=== PATIENT | female | born 1970 | race Caucasian/White ===

== ENCOUNTER 2016-10-06 09:46 | Day surgery (SDC) | payer OTHER ==
[2016-10-06 11:10] VITALS: RESP 16; TEMP 98.1
[2016-10-06] MEDS ORDERED: LIDOCAINE 1% 20 ML VIAL (10MG/ML) FOR IV START INTRADERMA PRN (11:18)
[2016-10-06] MEDS ORDERED: LACTATED RINGERS 1,000 ML IV SCH (11:18)
[2016-10-06] MEDS ORDERED: LIDOCAINE 1% 20 ML VIAL (10MG/ML) FOR IV START INTRADERMA ONE (11:31)
[2016-10-06] MEDS ORDERED: PROPOFOL 10 MG/ML 20 ML VIAL IV ONE (11:32)
--- NOTE | 2016-10-06 11:52 | P.PCN ---
Date of Procedure: 10/06/16 Preoperative Diagnosis: Postoperative Diagnosis: Procedure(s) Performed: BRIEF HISTORY: Patient is a 46-year-old pleasant white female, scheduled for an elective colonoscopy as a part of evaluation of change in bowel habits and elevated CEA level. 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 On a routine labs she was noted have elevated CEA level and hence scheduled for a colonoscopy today. PROCEDURE PERFORMED: Colonoscopy with biopsy PREOPERATIVE DIAGNOSIS: Change in bowel habits and elevated CEA level. IV sedation per Anesthesia. PROCEDURE: After informed consent was obtained, the patient, was brought into the endoscopy unit. IV sedation was administered by Anesthesia under continuous monitoring. Digital rectal examination was normal. Initially the Olympus CF- 160 flexible video colonoscope was then inserted in the rectum, gradually advanced into the cecum without any difficulty. Careful examination was performed as the scope was gradually being withdrawn. Ileocecal valve and the appendiceal orifice were visualized and appeared normal. Prep was excellent. Mucosa of the cecum appeared normal. In the ascending colon there was a 5 mm polyp that was removed by cold biopsy. The rest of the, ascending colon, transverse colon, descending colon, sigmoid colon, and rectum appeared normal. Retroflexion was performed in the rectum and no lesions were seen. The patient tolerated the procedure well. IMPRESSION: 5 mm ascending colon polyp status post removal by biopsy. Rest of the colon appeared normal RECOMMENDATIONS: Findings of this examination were discussed with the patient as well as a family. She was advised to follow with the biopsy results. If the biopsy shows a tubal adenoma she can have a repeat colonoscopy in 5 years. Implants: Indications for Procedure: Operative Findings: Description of Procedure:
[2016-10-06 12:13] VITALS: BP 103/57; PULSE 60
== END 2016-10-06 12:44 | disposition home or self-care (01) ==
LOC: ORWHC2ENDO 09:46
PROVIDERS: ATTEND Internal Medicine Gastroenterology
DX: K63.5 Polyp of colon (principal); K21.9 Gastro-esophageal reflux disease without esophagitis; G43.909 Migraine, unspecified, not intractable, without status migrainosus; Z79.891 Long term (current) use of opiate analgesic; Z79.899 Other long term (current) drug therapy
CPT/HCPCS: 81025; 88305; 45380; J2704

== ENCOUNTER 2016-11-11 18:37 | Emergency (ER) | payer OTHER ==
[2016-11-11] MEDS ORDERED: MORPHINE SULFATE 4 MG/ML SYRINGE IV STA (19:20)
[2016-11-11] MEDS ORDERED: SODIUM CHLORIDE 0.9% 1,000 ML IV STA ×2 (19:20)
[2016-11-11] MEDS ORDERED: ONDANSETRON 4 MG/2 ML VIAL IVP STA ×2 (19:20→20:42)
[2016-11-11 20:20] LABS: Basophils % (A) 0 %; CHCM 33.3; Eosinophils # (A) 0.1 k/uL (0-0.7); Eosinophils % (A) 1 %; HCT 33.1 % (34.0-46.0); HDW 2.92; Hypochromasia Slight; Luc # (Auto) 0.13; Luc % (Auto) 1; Lymphocytes # (A) 1.4 k/uL (1.0-4.8); Lymphocytes % (A) 15 %; MCH 31.1 pg (25.0-35.0); MCHC 33.2 g/dL (31.0-37.0); MCV 93.7 fL (80.0-100.0); Mean Platelet Volume 7.1; Monocytes # (A) 0.5 k/uL (0-1.0); Monocytes % (A) 5 %; Neutrophils # (A) 7.1 k/uL (1.3-7.7); Neutrophils % (A) 77 %; RBC 3.53 m/uL (3.80-5.40); RDW 13.9 % (11.5-15.5); WBC 9.3 k/uL (3.8-10.6); WBC (Perox) 9.21
[2016-11-11 20:30] LABS: ALT 33 U/L (9-52); AST 28 U/L (14-36); Alkaline Phosphatase 122 U/L (38-126); Amylase 40 U/L (30-110); Anion Gap 11 mmol/L; Blood Urea Nitrogen 14 mg/dL (7-17); Calcium 9.4 mg/dL (8.4-10.2); Carbon Dioxide 24 mmol/L (22-30); Chloride 108 mmol/L (98-107); Glucose 143 mg/dL (74-99); Non-African American GFR(MDRD) >60 (>60 ml/min/1.73 sqM); Potassium 4.5 mmol/L (3.5-5.1); Sodium 143 mmol/L (137-145); Total Bilirubin 0.5 mg/dL (0.2-1.3); Total Protein 6.9 g/dL (6.3-8.2)
--- NOTE | 2016-11-11 20:36 | XR ---
EXAMINATION TYPE: XR abdomen complete w decub DATE OF EXAM: 11/11/2016 COMPARISON: NONE HISTORY: Nausea vomiting TECHNIQUE: Upright and supine views abdomen FINDINGS: Normal colonic bowel gas is present. Psoas margins are normal. Cholecystectomy clips are pr esent. No organomegaly is evident. Phlebolith is within the pelvis. No free air is evident. No differential air-fluid levels are present. No mass effect is evident. There is partial sacralization of L5. IMPRESSION: 1. Normal acute abdomen series
[2016-11-11] MEDS ORDERED: MORPHINE SULFATE 4 MG/ML SYRINGE IVP STA (20:42)
[2016-11-11 21:23] LABS: Amorphous Sediment,Urine Occasional /hpf; Appearance,Urine Turbid (Clear); Bilirubin,Urine Negative (Negative); Glucose,Urine (UA) Negative (Negative); Ketones,Urine 3+ (Negative); Leukocyte Esterase,Urine Small (Negative); Mucus,Urine Occasional /hpf; Nitrite,Urine Negative (Negative); PH, Urine 8.5 (5.0-8.0); Particle Count 24092; Protein,Urine Trace (Negative); Specific Gravity,Urine 1.014 (1.001-1.035); Squamous Epithelial Cell,Urine 14 /hpf (0-4); UA Billing (MACRO vs. MICRO) MICRO; Urobilinogen,Urine <2.0 mg/dL (<2.0)
[2016-11-11] MEDS ORDERED: METOCLOPRAMIDE 5 MG/ML 2 ML VIAL IVP STA (21:29)
[2016-11-11] MEDS ORDERED: diphenhydrAMINE 50 MG/ML 1 ML VIAL IVP STA (21:29)
--- NOTE | 2016-11-11 21:40 | ED ---
General Adult HPI - General Chief complaint: Nausea/Vomiting/Diarrhea Stated complaint: nausea/vomiting Time Seen by Provider: 11/11/16 19:14 Source: patient, RN notes reviewed, old records reviewed Mode of arrival: wheelchair Limitations: no limitations - History of Present Illness Initial comments: 46-year-old female presents with a 6 hour history of acute onset vomiting and profound nausea. Patient states she had approximately 3 episodes of vomiting which was nonbloody. She does report a small amount of diarrhea or loose stool. She has abdominal pain which is unchanged over the past week. Patient did have abdominal surgery on November 02 at [facility]. Patient states she had a cyst on her pancreas which was removed as well as her spleen. Patient is a history of chronic pancreatitis and alcohol abuse. She denies fever but states she has been hot and cold. Denies erythema or drainage from her surgical incision. - Related Data Home Medications Medication Instructions Recorded Confirmed Omeprazole [PriLOSEC] 20 mg PO DAILY PRN 10/04/16 11/11/16 SUMAtriptan SUCCINATE [Imitrex] 50 mg PO DAILY PRN 10/04/16 11/11/16 Methocarbamol [Robaxin] 750 mg PO TID 11/11/16 11/11/16 Sennosides [Senna] 8.6 mg PO DAILY PRN 11/11/16 11/11/16 oxyCODONE HCL [Roxicodone] 5 - 10 mg PO Q4HR 11/11/16 11/11/16 Allergies Allergy/AdvReac Type Severity Reaction Status Date / Time No Known Allergies Allergy Verified 11/11/16 19:09 Review of Systems ROS Statement: Those systems with pertinent positive or pertinent negative responses have been documented in the HPI. ROS Other: All systems not noted in ROS Statement are negative. Constitutional: Reports: fever, chills Gastrointestinal: Reports: abdominal pain, nausea, vomiting, diarrhea Past Medical History Past Medical History: GERD/Reflux Additional Past Medical History / Comment(s): HX OF PANCREATITIS R/T gallstone, loose stools, herniated disc, hx. ulcer, scheduled for surgery soon @[facility] related to cyst on pancreas & elevated CEA level History of Any Multi-Drug Resistant Organisms: None Reported Past Surgical History: Cholecystectomy Additional Past Surgical History / Comment(s): PANCREATIC DEBRIDEMENT Past Anesthesia/Blood Transfusion Reactions: No Reported Reaction Past Psychological History: No Psychological Hx Reported Smoking Status: Current every day smoker - Past Family History Mother Family Medical History: Cancer Additional Family Medical History / Comment(s): ovarian Father Family Medical History: Cancer Additional Family Medical History / Comment(s): pancreatic Brother(s) Family Medical History: Deep Vein Thrombosis (DVT) General Exam Limitations: no limitations General appearance: alert, in distress Head exam: Present: atraumatic Eye exam: Present: normal appearance, PERRL. Absent: scleral icterus ENT exam: Present: normal exam, mucous membranes dry Respiratory exam: Present: normal lung sounds bilaterally. Absent: respiratory distress, wheezes Cardiovascular Exam: Present: regular rate, normal rhythm GI/Abdominal exam: Present: soft, tenderness (There is epigastric and left upper quadrant), other (Incision is clean dry and intact). Absent: guarding, rebound Extremities exam: Present: normal inspection. Absent: pedal edema Neurological exam: Present: alert, oriented X3 Psychiatric exam: Present: normal affect, normal mood Skin exam: Present: warm, diaphoretic Course Vital Signs 11/11/16 11/11/16 11/11/16 18:47 20:01 20:59 Temperature 97.1 F L 97.6 F 97.9 F Pulse Rate 69 61 63 Respiratory 16 20 24 Rate Blood Pressure 117/61 102/59 126/66 O2 Sat by Pulse 100 100 100 Oximetry - Reevaluation(s) Reevaluation #1: 11/11/16 21:36 Patient is reevaluated multiple times. She has persistent nausea. Patient remains diaphoretic. Vital signs are stable. Abdominal pain is unchanged. Patient is given Zofran, Reglan, Benadryl for nausea. Patient will be transferred to him her surgeon practices, patient is agreeable with this plan. Medical Decision Making - Medical Decision Making 6-year-old female presenting with acute nausea and vomiting. Patient receives multiple doses of antiemetics in the emergency department. She still is very uncomfortable with persistent nausea and vomiting. Patient is postop pancreatic and splenic surgery at [facility]. Laboratory studies reviewed and is grossly unremarkable. X-ray of the abdomen does not show any acute process, no obstruction, no free air. As discussed with the patient she was agreeable. Diagnosis: Intractable nausea and vomiting postoperative abdominal surgery. Disposition: Transfer to [facility] for further evaluation and treatment. accepting doctor: - Lab Data Result diagrams: 11/11/16 19:50 11/11/16 19:50 Lab Results 11/11/16 11/11/16 11/11/16 Range/Units 19:50 19:50 19:50 WBC 9.3 (3.8-10.6) k/uL RBC 3.53 L (3.80-5.40) m/uL Hgb 11.0 L (11.4-16.0) gm/dL Hct 33.1 L (34.0-46.0) % MCV 93.7 (80.0-100.0) fL MCH 31.1 (25.0-35.0) pg MCHC 33.2 (31.0-37.0) g/dL RDW 13.9 (11.5-15.5) % Plt Count 728 H (150-450) k/uL Neutrophils % 77 % Lymphocytes % 15 % Monocytes % 5 % Eosinophils % 1 % Basophils % 0 % Neutrophils # 7.1 (1.3-7.7) k/uL Lymphocytes # 1.4 (1.0-4.8) k/uL Monocytes # 0.5 (0-1.0) k/uL Eosinophils # 0.1 (0-0.7) k/uL Basophils # 0.0 (0-0.2) k/uL Hypochromasia Slight Sodium 143 (137-145) mmol/L Potassium 4.5 (3.5-5.1) mmol/L Chloride 108 H (98-107) mmol/L Carbon Dioxide 24 (22-30) mmol/L Anion Gap 11 mmol/L BUN 14 (7-17) mg/dL Creatinine 0.63 (0.52-1.04) mg/dL Est GFR (MDRD) Af Amer >60 (>60 ml/min/1.73 sqM) Est GFR (MDRD) Non-Af >60 (>60 ml/min/1.73 sqM) Glucose 143 H (74-99) mg/dL Plasma Lactic Acid Collin 1.1 (0.7-2.0) mmol/L Calcium 9.4 (8.4-10.2) mg/dL Total Bilirubin 0.5 (0.2-1.3) mg/dL AST 28 (14-36) U/L ALT 33 (9-52) U/L Alkaline Phosphatase 122 (38-126) U/L Total Protein 6.9 (6.3-8.2) g/dL Albumin 3.6 (3.5-5.0) g/dL Amylase 40 (30-110) U/L Lipase 77 (23-300) U/L Urine Color Urine Appearance (Clear) Urine pH (5.0-8.0) Ur Specific [place] (1.001-1.035) Urine Protein (Negative) Urine Glucose (UA) (Negative) Urine Blood (Negative) Urine Nitrite (Negative) Urine Bilirubin (Negative) Urine Urobilinogen (<2.0) mg/dL Ur Leukocyte Esterase (Negative) Ur Squamous Epith Cells (0-4) /hpf Amorphous Sediment (None) /hpf Urine Mucus (None) /hpf 11/11/16 Range/Units 21:10 WBC (3.8-10.6) k/uL RBC (3.80-5.40) m/uL Hgb (11.4-16.0) gm/dL Hct (34.0-46.0) % MCV (80.0-100.0) fL MCH (25.0-35.0) pg MCHC (31.0-37.0) g/dL RDW (11.5-15.5) % Plt Count (150-450) k/uL Neutrophils % % Lymphocytes % % Monocytes % % Eosinophils % % Basophils % % Neutrophils # (1.3-7.7) k/uL Lymphocytes # (1.0-4.8) k/uL Monocytes # (0-1.0) k/uL Eosinophils # (0-0.7) k/uL Basophils # (0-0.2) k/uL Hypochromasia Sodium (137-145) mmol/L Potassium (3.5-5.1) mmol/L Chloride (98-107) mmol/L Carbon Dioxide (22-30) mmol/L Anion Gap mmol/L BUN (7-17) mg/dL Creatinine (0.52-1.04) mg/dL Est GFR (MDRD) Af Amer (>60 ml/min/1.73 sqM) Est GFR (MDRD) Non-Af (>60 ml/min/1.73 sqM) Glucose (74-99) mg/dL Plasma Lactic Acid [place] (0.7-2.0) mmol/L Calcium (8.4-10.2) mg/dL Total Bilirubin (0.2-1.3) mg/dL AST (14-36) U/L ALT (9-52) U/L Alkaline Phosphatase (38-126) U/L Total Protein (6.3-8.2) g/dL Albumin (3.5-5.0) g/dL Amylase (30-110) U/L Lipase (23-300) U/L Urine Color Yellow Urine Appearance Turbid H (Clear) Urine pH 8.5 H (5.0-8.0) Ur Specific [place] 1.014 (1.001-1.035) Urine Protein Trace H (Negative) Urine Glucose (UA) Negative (Negative) Urine Blood Negative (Negative) Urine Nitrite Negative (Negative) Urine Bilirubin Negative (Negative) Urine Urobilinogen <2.0 (<2.0) mg/dL Ur Leukocyte Esterase Small H (Negative) Ur Squamous Epith Cells 14 H (0-4) /hpf Amorphous Sediment Occasional H (None) /hpf Urine Mucus Occasional H (None) /hpf Disposition Clinical Impression: Nausea & vomiting Disposition: OTHER INSTITUTION NOT DEFINED Instructions: Acute Nausea and Vomiting (ED) Referrals: Mingo Mari DO [Primary Care Provider] - 1-2 days Time of Disposition: 21:39 - Out of Hospital Transfer - Req. Specs Out of Hospital Transfer - Requested Specifics: Other Non-Acute (Patient transferred to [facility] in [place])
[2016-11-11 22:19] VITALS: BP 127/67; PULSE 74; RESP 20; TEMP 9
== END 2016-11-12 00:22 | disposition short-term general hospital (02) ==
LOC: EC 18:37
DX: R11.2 Nausea with vomiting, unspecified (principal); R10.9 Unspecified abdominal pain; R19.7 Diarrhea, unspecified; F17.200 Nicotine dependence, unspecified, uncomplicated; Z79.899 Other long term (current) drug therapy; Z87.19 Personal history of other diseases of the digestive system; Z98.890 Other specified postprocedural states; Z90.49 Acquired absence of other specified parts of digestive tract
CPT/HCPCS: 99285; 96374; 96375 ×3; 96376 ×2; 96361 ×4; 36415; 80053; 82150; 83605; 83690; 85025; 81001; 74020; J2270; J1200; J2765; J2405

== ENCOUNTER 2017-07-03 18:34 | Emergency (ER) | payer OTHER ==
[2017-07-03] MEDS ORDERED: HYDROmorphone 0.5 MG/0.5 ML SYRINGE IVP STA ×3 (19:09→21:52)
[2017-07-03] MEDS ORDERED: SODIUM CHLORIDE 0.9% 2,000 ML IV STA (19:09)
[2017-07-03] MEDS ORDERED: ONDANSETRON 4 MG/2 ML VIAL IVP STA ×2 (19:09→21:52)
[2017-07-03] MEDS ORDERED: RX INFO: IV CONTRAST WAS GIVEN 1 EACH MISC MISCELLANE PRN (19:09)
[2017-07-03 20:06] LABS: Basophils % (A) 0 %; Eosinophils % (A) 0 %; HCT 40.3 % (34.0-46.0); HGB 13.1 gm/dL (11.4-16.0); Lymphocytes # (A) 1.5 k/uL (1.0-4.8); Lymphocytes % (A) 16 %; MCH 29.3 pg (25.0-35.0); MCHC 32.4 g/dL (31.0-37.0); MCV 90.2 fL (80.0-100.0); Mean Platelet Volume 7.1; Monocytes # (A) 0.4 k/uL (0-1.0); Monocytes % (A) 4 %; Neutrophils # (A) 7.5 k/uL (1.3-7.7); Neutrophils % (A) 79 %; Platelet Count 340 k/uL (150-450); RBC 4.46 m/uL (3.80-5.40); RDW 15.2 % (11.5-15.5); WBC 9.5 k/uL (3.8-10.6)
[2017-07-03 20:16] LABS: ALT 31 U/L (9-52); AST 21 U/L (14-36); Albumin 4.1 g/dL (3.5-5.0); Alkaline Phosphatase 84 U/L (38-126); Amylase 42 U/L (30-110); Anion Gap 13 mmol/L; Blood Urea Nitrogen 21 mg/dL (7-17); Calcium 9.6 mg/dL (8.4-10.2); Carbon Dioxide 25 mmol/L (22-30); Chloride 103 mmol/L (98-107); Glucose 133 mg/dL (74-99); Lipase 68 U/L (23-300); Potassium 4.2 mmol/L (3.5-5.1); Sodium 141 mmol/L (137-145); Total Bilirubin 0.6 mg/dL (0.2-1.3); Total Protein 7.2 g/dL (6.3-8.2)
--- NOTE | 2017-07-03 20:32 | ED ---
Abdominal Pain HPI - General Chief Complaint: Abdominal Pain Stated Complaint: Abd.pain Time Seen by Provider: 07/03/17 19:03 Source: patient, RN notes reviewed Mode of arrival: ambulatory Limitations: no limitations - History of Present Illness Initial Comments: This a 47-year-old female presents emergency Department chief complaint abdominal pain, nausea vomiting. Patient states that symptoms initially started on Sunday. She states that she had a stent removed in her pancreas on Sunday at [facility]. Patient states that she had symptoms after though she felt great yesterday but symptoms started again today. Patient said patellar pancreas removed in the past, cysts removed states that she's had pancreatic issues and gallbladder problems. Patient's is concerned that she may be having problems with her pancreas that she is having discomfort. Denies fever or chills she states she's had hot and cold issues. Patient states she did not contact her surgeon. Patient denies chest pain, shortness breath, headache or dizziness. - Related Data Home Medications Medication Instructions Recorded Confirmed SUMAtriptan SUCCINATE [Imitrex] 50 mg PO DAILY PRN 10/04/16 07/03/17 HYDROcodone/APAP 5-325MG [[place] 1 tab PO DAILY PRN 07/03/17 07/03/17 5-325] Previous Rx's Medication Instructions Recorded Ondansetron Odt [Zofran Odt] 4 mg PO Q8HR PRN #10 tab 07/03/17 Allergies Allergy/AdvReac Type Severity Reaction Status Date / Time No Known Allergies Allergy Verified 07/03/17 19:20 Review of Systems ROS Statement: Those systems with pertinent positive or pertinent negative responses have been documented in the HPI. ROS Other: All systems not noted in ROS Statement are negative. Past Medical History Past Medical History: GERD/Reflux Additional Past Medical History / Comment(s): HX OF PANCREATITIS R/T gallstone, loose stools, herniated disc, hx. ulcer, scheduled for surgery soon @[facility] related to cyst on pancreas & elevated CEA level History of Any Multi-Drug Resistant Organisms: None Reported Past Surgical History: Cholecystectomy Additional Past Surgical History / Comment(s): PANCREATIC DEBRIDEMENT Past Anesthesia/Blood Transfusion Reactions: No Reported Reaction Past Psychological History: No Psychological Hx Reported Smoking Status: Former smoker Past Alcohol Use History: None Reported Past Drug Use History: Marijuana - Past Family History Mother Family Medical History: Cancer Additional Family Medical History / Comment(s): ovarian Father Family Medical History: Cancer Additional Family Medical History / Comment(s): pancreatic Brother(s) Family Medical History: Deep Vein Thrombosis (DVT) General Exam Limitations: no limitations General appearance: alert, in no apparent distress Head exam: Present: atraumatic, normocephalic, normal inspection Neck exam: Present: normal inspection, full ROM. Absent: tenderness, meningismus, lymphadenopathy Respiratory exam: Present: normal lung sounds bilaterally. Absent: respiratory distress, wheezes, rales, rhonchi, stridor Cardiovascular Exam: Present: regular rate, normal rhythm, normal heart sounds. Absent: systolic murmur, diastolic murmur, rubs, gallop, clicks GI/Abdominal exam: Present: soft, tenderness ([id number] abdominal tenderness), normal bowel sounds. Absent: distended, guarding, rebound, rigid Course Vital Signs 07/03/17 18:40 Temperature 97.5 F L Pulse Rate 56 L Respiratory 18 Rate Blood Pressure 131/70 O2 Sat by Pulse 98 Oximetry Medical Decision Making - Medical Decision Making 47-year-old female presented emergency from for abdominal pain concerning for pancreatitis. Patient's labwork is unremarkable. CT does show patches of temporary stent as they were told it was going to. She has no signs of infection. Patient be discharged with antiemetics advised to call her surgery tender mild symptoms persist. Patient family agreed to plan. - Lab Data Result diagrams: 07/03/17 19:44 07/03/17 19:44 Lab Results 07/03/17 07/03/17 07/03/17 Range/Units 19:44 19:44 19:44 WBC 9.5 (3.8-10.6) k/uL RBC 4.46 (3.80-5.40) m/uL Hgb 13.1 (11.4-16.0) gm/dL Hct 40.3 (34.0-46.0) % MCV 90.2 (80.0-100.0) fL MCH 29.3 (25.0-35.0) pg MCHC 32.4 (31.0-37.0) g/dL RDW 15.2 (11.5-15.5) % Plt Count 340 (150-450) k/uL Neutrophils % 79 % Lymphocytes % 16 % Monocytes % 4 % Eosinophils % 0 % Basophils % 0 % Neutrophils # 7.5 (1.3-7.7) k/uL Lymphocytes # 1.5 (1.0-4.8) k/uL Monocytes # 0.4 (0-1.0) k/uL Eosinophils # 0.0 (0-0.7) k/uL Basophils # 0.0 (0-0.2) k/uL PT (9.0-12.0) sec INR (<1.2) APTT (22.0-30.0) sec Sodium 141 (137-145) mmol/L Potassium 4.2 (3.5-5.1) mmol/L Chloride 103 (98-107) mmol/L Carbon Dioxide 25 (22-30) mmol/L Anion Gap 13 mmol/L BUN 21 H (7-17) mg/dL Creatinine 0.60 (0.52-1.04) mg/dL Est GFR (MDRD) Af Amer >60 (>60 ml/min/1.73 sqM) Est GFR (MDRD) Non-Af >60 (>60 ml/min/1.73 sqM) Glucose 133 H (74-99) mg/dL Plasma Lactic Acid [place] 1.3 (0.7-2.0) mmol/L Calcium 9.6 (8.4-10.2) mg/dL Total Bilirubin 0.6 (0.2-1.3) mg/dL AST 21 (14-36) U/L ALT 31 (9-52) U/L Alkaline Phosphatase 84 (38-126) U/L Total Protein 7.2 (6.3-8.2) g/dL Albumin 4.1 (3.5-5.0) g/dL Amylase 42 (30-110) U/L Lipase 68 (23-300) U/L 07/03/17 Range/Units 19:44 WBC (3.8-10.6) k/uL RBC (3.80-5.40) m/uL Hgb (11.4-16.0) gm/dL Hct (34.0-46.0) % MCV (80.0-100.0) fL MCH (25.0-35.0) pg MCHC (31.0-37.0) g/dL RDW (11.5-15.5) % Plt Count (150-450) k/uL Neutrophils % % Lymphocytes % % Monocytes % % Eosinophils % % Basophils % % Neutrophils # (1.3-7.7) k/uL Lymphocytes # (1.0-4.8) k/uL Monocytes # (0-1.0) k/uL Eosinophils # (0-0.7) k/uL Basophils # (0-0.2) k/uL PT 10.9 (9.0-12.0) sec INR 1.1 (<1.2) APTT 23.9 (22.0-30.0) sec Sodium (137-145) mmol/L Potassium (3.5-5.1) mmol/L Chloride (98-107) mmol/L Carbon Dioxide (22-30) mmol/L Anion Gap mmol/L BUN (7-17) mg/dL Creatinine (0.52-1.04) mg/dL Est GFR (MDRD) Af Amer (>60 ml/min/1.73 sqM) Est GFR (MDRD) Non-Af (>60 ml/min/1.73 sqM) Glucose (74-99) mg/dL Plasma Lactic Acid [place] (0.7-2.0) mmol/L Calcium (8.4-10.2) mg/dL Total Bilirubin (0.2-1.3) mg/dL AST (14-36) U/L ALT (9-52) U/L Alkaline Phosphatase (38-126) U/L Total Protein (6.3-8.2) g/dL Albumin (3.5-5.0) g/dL Amylase (30-110) U/L Lipase (23-300) U/L Disposition Clinical Impression: Nausea & vomiting, Abdominal pain Disposition: HOME SELF-CARE Condition: Stable Instructions: Abdominal Pain (ED) Additional Instructions: Please return to the Emergency Department if symptoms worsen or any other concerns. Prescriptions: Ondansetron Odt [Zofran Odt] 4 mg PO Q8HR PRN #10 tab PRN Reason: Nausea Referrals: Mingo Mari DO [Primary Care Provider] - 1-2 days Time of Disposition: 21:49
[2017-07-03 20:38] LABS: INR 1.1 (<1.2); Partial Thromboplastin Time 23.9 sec (22.0-30.0); Prothrombin Time 10.9 sec (9.0-12.0)
--- NOTE | 2017-07-03 21:23 | CT ---
EXAMINATION TYPE: CT abdomen pelvis w con DATE OF EXAM: 07/03/2017 COMPARISON: Prior CT 03/30/2015 HISTORY: Abdominal pain, nausea and vomiting post pancreatic stent removal [address] DLP: 663.8 mGycm Automated exposure control for dose reduction was used. TECHNIQUE: Helical acquisition of images from the lung bases through the pelvis have been completed. CONTRAST: Performed without Oral Contrast and with IV Contrast, patient injected with 100 mL of Omnipaque 300. FINDINGS: The stomach shows abnormal wall thickening in the body and antrum similar to previous exam LUNG BASES: No significant abnormality is appreciated. AORTA: No significant abnormality is appreciated. LIVER/GB: Liver is enlarged and shows low attenuation. Patient is post cholecystectomy. PANCREAS: Distal splenectomy likely has been performed. Cystic structure seen in the tail and the sam us no longer visualized. SPLEEN: Absent, there is been interval splenectomy ADRENALS: No significant abnormality is seen. KIDNEYS: No significant abnormality is seen. REPRODUCTIVE ORGANS: No significant abnormality is seen BOWEL: Small bowel folds are somewhat thickened in the upper abdomen. There is a linear foreign body coiled within the bowel in the left upper quadrant. Some small benign appearing calcifications prese nt within the mesentery. FREE AIR: No Free Air visible. ASCITES: None visible. PELVIC ADENOPATHY: None visualized. RETROPERITONEAL ADENOPATHY: No Retroperitoneal Adenopathy visible. URINARY BLADDER: No significant abnormality is seen. OSSEOUS STRUCTURES: No significant abnormality is seen. IMPRESSION: PATIENT'S STENT LIKELY WITHIN THE SMALL BOWEL. CORRELATE FOR NEURITIS. NO EVIDENT BOWEL OBSTRUCTION. POSTOP CHANGES. CORRELATE TO EXCLUDE GASTRITIS, CONSIDER ENDOSCOPY IF THIS HAS NOT BEEN PERFORMED. HE PATOMEGALY, THERE MAY BE HEPATIC STEATOSIS.
[2017-07-03 22:27] LABS: Appearance,Urine Clear (Clear); Bilirubin,Urine Negative (Negative); Blood,Urine Trace (Negative); Color,Urine Yellow; Glucose,Urine (UA) Negative (Negative); Ketones,Urine 1+ (Negative); Leukocyte Esterase,Urine Negative (Negative); Mucus,Urine Rare /hpf; Nitrite,Urine Negative (Negative); PH, Urine 6.5 (5.0-8.0); Protein,Urine 1+ (Negative); RBC,Urine 3 /hpf (0-5); Squamous Epithelial Cell,Urine 11 /hpf (0-4); Urobilinogen,Urine <2.0 mg/dL (<2.0); WBC,Urine <1 /hpf (0-5)
[2017-07-03 22:31] LABS: Specific Gravity,Urine >1.050 (1.001-1.035)
[2017-07-03 22:36] VITALS: BP 125/68; PULSE 62; RESP 16; TEMP 97.8
== END 2017-07-03 22:37 | disposition home or self-care (01) ==
LOC: EC 18:34
DX: R10.9 Unspecified abdominal pain (principal); R11.2 Nausea with vomiting, unspecified; Z87.891 Personal history of nicotine dependence; Z87.19 Personal history of other diseases of the digestive system; Z90.49 Acquired absence of other specified parts of digestive tract
CPT/HCPCS: 36415; 80053; 82150; 83605; 83690; 85025; 85610; 85730; 81001; 87040; 74177; 99284; 96374; 96375; 96376 ×3; 96361; J2405; Q9967; J1170

== ENCOUNTER 2017-12-26 23:45 | Emergency (ER) | payer OTHER ==
[2017-12-27] MEDS ORDERED: ONDANSETRON 4 MG/2 ML VIAL IVP STA ×2 (00:07→03:50)
--- NOTE | 2017-12-27 00:32 | XR ---
EXAMINATION TYPE: XR KUB DATE OF EXAM: 12/27/2017 COMPARISON: 11/11/2016 HISTORY: Abdominal pain TECHNIQUE: 2 views upright FINDINGS: Bowel gas pattern is normal. There is no sign of intestinal obstruction or pneumoperitoneum . Fecal pattern is normal. There are no pathologic calcifications over the kidneys. IMPRESSION: Nonacute abdomen. No change.
[2017-12-27] MEDS ORDERED: SODIUM CHLORIDE 0.9% 1,000 ML IV ONE (00:43)
--- NOTE | 2017-12-27 00:49 | ED ---
General Adult HPI - General Chief complaint: Abdominal Pain Stated complaint: abdominal pain Time Seen by Provider: 12/27/17 00:01 Source: patient Mode of arrival: ambulatory Limitations: no limitations - History of Present Illness Initial comments: Alma Rosa is a 47-year-old female who presents to the emergency department today for evaluation of nausea, vomiting and abdominal pain. The patient has a history of frequent abdominal pain and episodes of nausea and vomiting. She has had extensive workup including EGD in the past with no definitive diagnosis for her nausea and vomiting. She does have a history of pancreatic cyst which was resected surgically. She has no history of bowel obstructions. She reports that she woke up feeling nauseated on Sunday morning, she's had nausea throughout the day but throughout the evening developed significant amounts of nonbloody vomiting. She reports that her last episodes of vomiting containing only fluid from her stomach. She reports that she's not been able tolerate any by mouth intake. She has taken by mouth Zofran without success. She states IV Zofran usually resolves her symptoms. She complains of mild epigastric discomfort but no significant abdominal pain. She denies any additional symptoms including fevers, chills, chest pain, palpitations or shortness of breath. - Related Data Home Medications Medication Instructions Recorded Confirmed SUMAtriptan SUCCINATE [Imitrex] 50 mg PO DAILY PRN 10/04/16 07/03/17 HYDROcodone/APAP 5-325MG [[place] 1 tab PO DAILY PRN 07/03/17 07/03/17 5-325] Previous Rx's Medication Instructions Recorded Ondansetron Odt [Zofran Odt] 4 mg PO Q8HR PRN #10 tab 07/03/17 Ondansetron [Zofran ODT] 4 mg PO Q8HR #12 tab 12/27/17 Allergies Allergy/AdvReac Type Severity Reaction Status Date / Time No Known Allergies Allergy Verified 12/26/17 23:50 Review of Systems ROS Statement: Those systems with pertinent positive or pertinent negative responses have been documented in the HPI. ROS Other: All systems not noted in ROS Statement are negative. Past Medical History Past Medical History: GERD/Reflux Additional Past Medical History / Comment(s): HX OF PANCREATITIS R/T gallstone, loose stools, herniated disc, hx. ulcer, scheduled for surgery soon @[facility] related to cyst on pancreas & elevated CEA level History of Any Multi-Drug Resistant Organisms: None Reported Past Surgical History: Cholecystectomy Additional Past Surgical History / Comment(s): PANCREATIC DEBRIDEMENT Past Anesthesia/Blood Transfusion Reactions: No Reported Reaction Past Psychological History: No Psychological Hx Reported Smoking Status: Former smoker Past Alcohol Use History: None Reported Past Drug Use History: Marijuana - Past Family History Mother Family Medical History: Cancer Additional Family Medical History / Comment(s): ovarian Father Family Medical History: Cancer Additional Family Medical History / Comment(s): pancreatic Brother(s) Family Medical History: Deep Vein Thrombosis (DVT) General Exam Limitations: no limitations General appearance: alert, other (Appears uncomfortable, dehydrated has a vomit basin with small amount of stomach acid in the basin.) Head exam: Present: atraumatic, normocephalic Eye exam: Present: normal appearance. Absent: PERRL ENT exam: Present: mucous membranes dry Neck exam: Present: full ROM Respiratory exam: Absent: respiratory distress Cardiovascular Exam: Present: regular rate, normal rhythm GI/Abdominal exam: Present: soft, normal bowel sounds. Absent: distended, tenderness, guarding, rebound, rigid Rectal exam: Present: deferred Extremities exam: Present: normal inspection Back exam: Present: normal inspection Neurological exam: Present: alert, oriented X3 Psychiatric exam: Present: normal affect, normal mood Skin exam: Present: warm Course Vital Signs 12/26/17 12/27/17 12/27/17 23:47 02:07 04:11 Temperature 97.6 F 98.2 F 97.9 F Pulse Rate 63 64 58 L Respiratory 20 16 18 Rate Blood Pressure 128/65 136/67 142/63 O2 Sat by Pulse 100 100 99 Oximetry Medical Decision Making - Medical Decision Making Patient was seen and evaluated, history is obtained from the patient as well as her at bedside Patient with a history of episodes of nausea or vomiting, no formal diagnosis, has been taking Zofran at home but continues to have nausea and nonbloody nonbilious emesis Labs and imaging ordered Zofran and IV fluids ordered Labs were unremarkable Morphine, Reglan and Benadryl were ordered for the patient for persistent nausea She was reevaluated and reported significant improvement after meds Patient requesting additional doses Zofran prior to discharge She states that she has Zofran by mouth at home but no ODT, I will discharge her home with Zofran ODT All questions pertaining care were answered best my ability patient discharged home in stable condition with a prescription for Zofran ODT - Lab Data Result diagrams: 12/27/17 01:00 12/27/17 01:00 Lab Results 12/27/17 12/27/17 Range/Units 01:00 01:00 WBC 9.7 (3.8-10.6) k/uL RBC 4.70 (3.80-5.40) m/uL Hgb 14.3 (11.4-16.0) gm/dL Hct 43.4 (34.0-46.0) % MCV 92.3 (80.0-100.0) fL MCH 30.5 (25.0-35.0) pg MCHC 33.0 (31.0-37.0) g/dL RDW 14.2 (11.5-15.5) % Plt Count 391 (150-450) k/uL Neutrophils % 82 % Lymphocytes % 13 % Monocytes % 4 % Eosinophils % 1 % Basophils % 0 % Neutrophils # 8.0 H (1.3-7.7) k/uL Lymphocytes # 1.3 (1.0-4.8) k/uL Monocytes # 0.4 (0-1.0) k/uL Eosinophils # 0.1 (0-0.7) k/uL Basophils # 0.0 (0-0.2) k/uL Sodium 142 (137-145) mmol/L Potassium 4.3 (3.5-5.1) mmol/L Chloride 108 H (98-107) mmol/L Carbon Dioxide 23 (22-30) mmol/L Anion Gap 11 mmol/L BUN 15 (7-17) mg/dL Creatinine 0.60 (0.52-1.04) mg/dL Est GFR (CKD-EPI)AfAm >90 (>60 ml/min/1.73 sqM) Est GFR (CKD-EPI)NonAf >90 (>60 ml/min/1.73 sqM) Glucose 187 H (74-99) mg/dL Calcium 10.1 (8.4-10.2) mg/dL Total Bilirubin 0.6 (0.2-1.3) mg/dL AST 18 (14-36) U/L ALT 23 (9-52) U/L Alkaline Phosphatase 99 (38-126) U/L Total Protein 7.7 (6.3-8.2) g/dL Albumin 4.5 (3.5-5.0) g/dL Amylase 49 (30-110) U/L Lipase 54 (23-300) U/L Disposition Clinical Impression: Nausea and vomiting Disposition: HOME SELF-CARE Condition: Good Instructions: Acute Nausea and Vomiting (ED), Abdominal Pain (ED) Prescriptions: Ondansetron [Zofran ODT] 4 mg PO Q8HR #12 tab Is patient prescribed a controlled substance at d/c from ED?: No Referrals: Mingo Mari DO [Primary Care Provider] - 1-2 days Time of Disposition: 03:51
[2017-12-27 01:22] LABS: Basophils % (A) 0 %; Eosinophils # (A) 0.1 k/uL (0-0.7); Eosinophils % (A) 1 %; HCT 43.4 % (34.0-46.0); HGB 14.3 gm/dL (11.4-16.0); Lymphocytes # (A) 1.3 k/uL (1.0-4.8); Lymphocytes % (A) 13 %; MCH 30.5 pg (25.0-35.0); MCV 92.3 fL (80.0-100.0); Mean Platelet Volume 7.2; Monocytes # (A) 0.4 k/uL (0-1.0); Monocytes % (A) 4 %; Neutrophils % (A) 82 %; Platelet Count 391 k/uL (150-450); RDW 14.2 % (11.5-15.5); WBC 9.7 k/uL (3.8-10.6)
[2017-12-27 01:31] LABS: ALT 23 U/L (9-52); AST 18 U/L (14-36); Albumin 4.5 g/dL (3.5-5.0); Alkaline Phosphatase 99 U/L (38-126); Amylase 49 U/L (30-110); Anion Gap 11 mmol/L; Blood Urea Nitrogen 15 mg/dL (7-17); Calcium 10.1 mg/dL (8.4-10.2); Carbon Dioxide 23 mmol/L (22-30); Chloride 108 mmol/L (98-107); Glucose 187 mg/dL (74-99); Lipase 54 U/L (23-300); Potassium 4.3 mmol/L (3.5-5.1); Sodium 142 mmol/L (137-145); Total Bilirubin 0.6 mg/dL (0.2-1.3); Total Protein 7.7 g/dL (6.3-8.2)
[2017-12-27] MEDS ORDERED: MORPHINE SULFATE 4 MG/ML SYRINGE IVP STA (01:41)
[2017-12-27] MEDS ORDERED: diphenhydrAMINE 50 MG/ML 1 ML VIAL IVP STA (01:48)
[2017-12-27] MEDS ORDERED: METOCLOPRAMIDE 5 MG/ML 2 ML VIAL IVP STA (01:48)
[2017-12-27 04:14] VITALS: BP 142/63; PULSE 58; RESP 18; TEMP 97.9
== END 2017-12-27 04:11 | disposition home or self-care (01) ==
LOC: EC 23:45
DX: R11.2 Nausea with vomiting, unspecified (principal); R10.13 Epigastric pain; Z87.891 Personal history of nicotine dependence; Z87.19 Personal history of other diseases of the digestive system; Z90.49 Acquired absence of other specified parts of digestive tract
CPT/HCPCS: 99284; 96374; 96375 ×3; 96376; 96361; 36415; 80053; 82150; 83690; 85025; 74018; J2270; J1200; J2765; J2405

== ENCOUNTER → 2019-04-29 | Outpatient (CLI) | payer OTHER ==
--- NOTE | 2019-04-29 13:35 | CT ---
EXAMINATION TYPE: CT abdomen w con DATE OF EXAM: 04/29/2019 COMPARISON: Prior CT 07/03/2017 HISTORY: Mid abdomen pain. CT DLP: 437.3 mGycm Automated exposure control for dose reduction was used. TECHNIQUE: Helical acquisition of images was performed from the lung bases through the top of iliac crest to include entire abdomen. CONTRAST: Performed with Oral Contrast and with IV Contrast, patient injected with 100 mL of Isovue 300. FINDINGS: LUNG BASES: No significant abnormality is appreciated. LIVER/GB: No significant abnormality is appreciated. Patient is post cholecystectomy. PANCREAS: No significant interval change is seen. Bulky body of the pancreas is noted, tail the pancr eas shows a calcification is stable possibly due to scarring and dystrophic calcification SPLEEN: No significant interval is seen, patient is post splenectomy. ADRENALS: No significant abnormality is seen. KIDNEYS: No significant abnormality is seen. BOWEL: No significant abnormality is seen. Interval passage of stent seen on prior exam the left upp er quadrant LYMPH NODES: No significant abnormality is appreciated. OSSEOUS STRUCTURES: No significant abnormality is seen. FREE AIR: No Free Air visible ASCITES: None visible. RETROPERITONEAL ADENOPATHY: No Retroperitoneal Adenopathy visible. OTHER: IMPRESSION: INTERVAL CHANGES, PASSAGE OF PATIENT'S STENT WITHIN THE BOWEL. POSTOP CHANGES.
== END | disposition home or self-care (01) ==
LOC: RADCTMAIN 11:45
PROVIDERS: ATTEND Physician Assistant
DX: Z09 Encounter for follow-up examination after completed treatment for conditions other than malignant neoplasm (principal); Z87.19 Personal history of other diseases of the digestive system; Z96.89 Presence of other specified functional implants; Z98.890 Other specified postprocedural states
CPT/HCPCS: 74160; Q9967 ×2